=== PATIENT | male | born 1940 | race Caucasian/White ===

== ENCOUNTER 2016-06-17 07:01 | Day surgery (SDC) | payer MEDICARE, OTHER ==
--- NOTE | ~2016-06-17 | EGD ---
EGD REPORT [facility] [address] [address] NAME: SANTIAGO MOBLEY : [birth year] STATUS : REG [facility] PAT#: [id number] AGE: 75 ADM/REG DATE : 06/17/16 MR#: [id number] REPORT SERV DATE: 06/17/16 DICTATED BY: DEEPAK HE DATE: 06/17/16 REPORT STATUS : Draft TRANSCRIBED BY: [facility] DATE: 06/17/16 End[facility] Center Patient Name: Santiago Mobley Date of : 1940 Attending MD: DEEPAK HE MD Procedure Date No Time: 06/17/2016 Procedure: Colonoscopy Indications: High risk colon cancer surveillance: Personal history of colonic polyps, (Last colon 02/2014) Referring MD: DEEPAK OLIVA MD Medicines: See the Anesthesia note for documentation of the administered medications Complications: No immediate complications. Procedure: Pre-Anesthesia Assessment: - ASA Grade Assessment: III - A patient with severe systemic disease. After I obtained informed consent, the scope was passed under direct vision. Throughout the procedure, the patient's blood pressure, pulse, and oxygen saturations were monitored continuously. The CF [id number] was introduced through the anus and advanced to the cecum, identified by appendiceal orifice and ileocecal valve. The colonoscopy was performed without difficulty. The patient tolerated the procedure well. The quality of the bowel preparation was adequate. Findings: The perianal and digital rectal examinations were normal. Internal hemorrhoids were found during retroflexion and were large. Five sessile polyps were found in the rectum. The polyps were small in size. These polyps were removed with a cold biopsy forceps. Resection and retrieval were complete. Impression: - Internal hemorrhoids. - Five small polyps in the rectum. Resected and retrieved. Recommendation: - Patient has a contact number available for emergencies. The signs and symptoms of potential delayed complications were discussed with the patient. Return to normal activities tomorrow. Written discharge instructions were provided to the patient. - Regular diet. - Continue present medications. - Repeat colonoscopy for surveillance based on pathology EGD REPORT [address] [address] NAME: SANTIAGO MOBLEY : [birth year] STATUS : REG [facility] [place] PAT#: [id number] AGE: 75 ADM/REG DATE : 06/17/16 MR#: [id number] REPORT SERV DATE: 06/17/16 DICTATED BY: DEEPAK HE DATE: 06/17/16 REPORT STATUS : Draft TRANSCRIBED BY: Aipai DATE: 06/17/16 results. - FOR YOUR BIOPSY RESULTS: Please go to [email or web address] and register to receive your results via the portal. Your biopsy results will be posted there in about 7 to 10 days. IF you do not see result in 10 days, call office. Procedure Code(s): --- Professional --- 03302, Colonoscopy, flexible, proximal to splenic flexure; with biopsy, single or multiple Diagnosis Code(s): --- Professional --- K64.8, Other hemorrhoids K62.1, Rectal polyp Z86.010, Personal history of colonic polyps CPT copyright 2013 [employer]. All rights reserved. The codes documented in this report are preliminary and upon retail warehouse supervisor review may be revised to meet current compliance requirements. Deepak He MD DEEPAK HE MD 06/17/2016 9:14 AM This report has been signed electronically. Number of Addenda: 0 Note Initiated On: 06/17/2016 8:47 AM Scope Withdrawal Time 0 hours 9 minutes 7 seconds [address] [id number]
[~2016-06-17 07:01] MED LIST: ACET500CAP PO; ALLEGRA180 PO; ASAB PO; BACDS PO; CALTRA600D PO; CIP5 PO; FISH OIL300 MG PO; GLUCPH PO; LEVOTHYROXIN75 MCG PO; LIPITOR40 PO; LOFIBRA200 MG PO; LORTAB 5 PO; LOTE20 PO; LOTREL1 CA2 PO; MULTIPLE VIT PO; MULTIVIT/MIN PO; MULTIVITAMI1 PO; NORV5 PO; OMEGA 3550 MG OR; Omega 3 PO; PRAVACHOL80 MG PO; PRILOSEC40 MG PO; PROBIOTIC PO; PROTONIX PO; PROZ10 PO; STIOLTO RESPIMAT4 GM INH; ZYRTEC ALLGY10 MG PO; [UNRECOGNIZED DRUG - REMARK] PO
== END 2016-06-17 23:59 | disposition home or self-care (01) ==
LOC: DMU 07:01
PROVIDERS: Internal Medicine Gastroenterology
PROC: 0DBP8ZZ Excision of Rectum, Via Natural or Artificial Opening Endoscopic (ICD-10-PCS; principal; 2016-06-17 09:00)
DX: Z12.11 Encounter for screening for malignant neoplasm of colon (principal); K62.1 Rectal polyp; K64.8 Other hemorrhoids; H91.90 Unspecified hearing loss, unspecified ear; E78.00 Pure hypercholesterolemia, unspecified; E11.9 Type 2 diabetes mellitus without complications; I10 Essential (primary) hypertension; E03.9 Hypothyroidism, unspecified; J44.9 Chronic obstructive pulmonary disease, unspecified; G47.33 Obstructive sleep apnea (adult) (pediatric); M19.90 Unspecified osteoarthritis, unspecified site; M77.9 Enthesopathy, unspecified; K21.9 Gastro-esophageal reflux disease without esophagitis; Z87.891 Personal history of nicotine dependence; Z86.010 Personal history of colon polyps; Z88.2 Allergy status to sulfonamides; Z88.0 Allergy status to penicillin; Z88.1 Allergy status to other antibiotic agents; Z90.49 Acquired absence of other specified parts of digestive tract; Z97.4 Presence of external hearing-aid; Z90.79 Acquired absence of other genital organ(s); Z85.46 Personal history of malignant neoplasm of prostate; Z98.890 Other specified postprocedural states; Z98.49 Cataract extraction status, unspecified eye; Z98.52 Vasectomy status; Z79.899 Other long term (current) drug therapy; Z79.82 Long term (current) use of aspirin
CPT/HCPCS: 82962; 88305